=== PATIENT | male | born 1955 | race Caucasian/White ===

== ENCOUNTER 2017-12-20 07:49 | Day surgery (SDC) | payer OTHER ==
[~2017-12-20] VITALS: Ht 190.5 cm; Wt 109.1 kg
[2017-12-20] MEDS ORDERED: SODIUM CHLORIDE 0.9% 1,000 ML IV SCH (08:37)
[2017-12-20 08:44] VITALS: BP 150/91
[2017-12-20] MEDS ORDERED: SAW160CA4 PO (08:51)
[2017-12-20] MEDS ORDERED: GARL10002 PO (08:51)
[2017-12-20] MEDS ORDERED: APIX5TAB PO (08:51)
[2017-12-20] MEDS ORDERED: SODIUM CHLORIDE 0.9% 1,000 ML IV ONE (09:00)
[2017-12-20] MEDS ORDERED: MIDAZOLAM 1 MG/ML, 2ML ONE (10:00)
[2017-12-20] MEDS ORDERED: FENTANYL PF 250 MCG/5ML ONE (10:00)
[2017-12-20] MEDS ORDERED: PROTAMINE SULFATE 10 MG/ML, 5ML ONE (10:02)
[2017-12-20] MEDS ORDERED: HEPARIN 1,000 UNITS/ML, 10ML ONE (10:02)
[2017-12-20] MEDS ORDERED: ISOPROTERENOL 0.2MG/ML, 5ML ONE (10:02)
[2017-12-20] MEDS ORDERED: ROCURONIUM 10 MG/ML,10ML ONE (10:12)
[2017-12-20] MEDS ORDERED: METOPROLOL 1 MG/ML, 5ML ONE ×3 (10:12→11:02)
[2017-12-20] MEDS ORDERED: ONDANSETRON 2MG/ML, 2ML ONE (10:12)
[2017-12-20] MEDS ORDERED: DEXAMETHASONE 4 MG/ML, 1ML ONE (10:12)
[2017-12-20] MEDS ORDERED: SUCCINYLCHOLINE 20 MG/ML, 10ML ONE (10:12)
[2017-12-20] MEDS ORDERED: PROPOFOL 10 MG/ML, 20ML ONE (10:12)
[2017-12-20] MEDS ORDERED: OXYcodone 5 MG/5 ML ORAL.SOL UDC PO PRN (12:00)
[2017-12-20] MEDS ORDERED: ACETAMINOPHEN 325 MG TABLET PO PRN ×2 (12:00)
[2017-12-20] MEDS ORDERED: MORPHINE SULFATE 4 MG/ML, 1ML IVPush PRN (12:00)
[2017-12-20] MEDS ORDERED: FENTANYL PF 100 MCG/2ML IV PRN (12:00)
[2017-12-20] MEDS ORDERED: MEPERIDINE/PF 25MG/0.5ML IVPush PRN (12:00)
[2017-12-20] MEDS ORDERED: METOPROLOL 1 MG/ML, 5ML IV PRN (12:00)
[2017-12-20] MEDS ORDERED: MIDAZOLAM 1 MG/ML, 2ML IV PRN (12:00)
[2017-12-20] MEDS ORDERED: EPHEDRINE 50 MG/ML, 1ML IM PRN (12:00)
[2017-12-20] MEDS ORDERED: ONDANSETRON ODT 8 MG PO PRN (12:00)
[2017-12-20] MEDS ORDERED: PROMETHAZINE 25 MG SUPP PR PRN (12:00)
[2017-12-20] MEDS ORDERED: PROMETHAZINE 25 MG/ML, 1ML IV PRN (12:00)
[2017-12-20] MEDS ORDERED: PROMETHAZINE 12.5 MG SUPP PR PRN (12:00)
[2017-12-20] MEDS ORDERED: EPHEDRINE 50 MG/ML, 1ML IVPush PRN (12:00)
[2017-12-20] MEDS ORDERED: DIPHENHYDRAMINE 50 MG/ML, 1ML IVPush PRN (12:00)
[2017-12-20] MEDS ORDERED: hydrALAzine 20 MG/ML, 1ML IV PRN (12:00)
[2017-12-20] MEDS ORDERED: APIXABAN 5 MG TABLET PO SCH (21:00)
[2017-12-21] MEDS ORDERED: TEMPLATE NON-FORMULARY MED. (Garlic** 1,000 MG) PO SCH (09:00)
[2017-12-21] MEDS ORDERED: SAW PALMETTO PO SCH (09:00)
== END 2017-12-20 16:20 | disposition home or self-care (01) ==
LOC: CACL 07:49
PROVIDERS: ATTEND Internal Medicine Cardiovascular Disease
DX: I48.92 Unspecified atrial flutter (principal); I10 Essential (primary) hypertension; Z79.899 Other long term (current) drug therapy
CPT/HCPCS: 93312; 93321; 93325; 93613; 93621; 93653; C1730; C1731; C1894; C2630; J0330; J1100; J2250; J2405; J2704; J3010; J1644; J2720